=== PATIENT | male | born 1955 | race Caucasian/White ===

== ENCOUNTER → 2017-01-01 | Outpatient (CLI) | payer OTHER ==
--- NOTE | 2017-01-01 09:13 | KCIC ---
PROCEDURE Screening for metal within the orbits prior to a MRI study. A single Kevin view of the orbits was performed. HISTORY [employer] for 17 years. FINDINGS No metallic foreign body is seen within either orbit. The maxillary and ethmoid and frontal sinuses are clear. The orbital floors appear symmetric and are intact. IMPRESSION No metallic foreign body is identified within either orbit. The patient is cleared for MRI. Electronically signed by: Chase Beasley MD (Jan 01, 2017 09:11:47)
--- NOTE | 2017-01-01 10:43 | KCIC ---
PROCEDURE MRI study of the right elbow without contrast HISTORY Lifting injury in November 2016. Bruising and pain of the right elbow. TECHNIQUE Noncontrast MRI sequences of the right elbow were performed in all 3 planes. An additional FABS sequence was performed. COMPARISON None available. FINDINGS No significant joint effusion is seen. No loose osteochondral body is evident. No bone marrow edema or fracture or marrow infiltrative process is seen. No focal osteochondral abnormality of the radial capitellar joint or the ulnar trochlear joint is seen. The lateral collateral ligament and lateral ulnar collateral ligament and the ulnar collateral ligament and annular ligament are intact. There is mild tendinosis of the common extensor tendon mechanism at the attachment to the lateral epicondyle. There is minimal tendinosis of the common flexor tendon mechanism at the attachment to the medial epicondyle. Otherwise no high-grade partial tear or complete tear of these tendon mechanisms is seen. The triceps tendon is intact. There is mild tendinosis of the triceps tendon at the attachment to the olecranon. No olecranon bursitis is seen. The brachialis tendon is intact. There is increased signal within the distal biceps tendon with thickening of the tendon. This is consistent with tendinosis with a high-grade partial longitudinal tear of the tendon. No complete rupture of the tendon is seen which remains intact to the attachment onto the proximal radial tubercle. Moderate tenosynovitis is seen around the tendon. 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 No complete rupture of this tendon is seen which is intact to the insertion onto the proximal radial tubercle. Moderate tenosynovitis. Electronically signed by: Chase Beasley MD (Jan 01, 2017 10:42:03)
== END | disposition home or self-care (01) ==
LOC: KCIC MRI 08:47
PROVIDERS: ATTEND Orthopaedic Surgery
DX: M25.521 Pain in right elbow (principal); T15.90XA Foreign body on external eye, part unspecified, unspecified eye, initial encounter
CPT/HCPCS: 70030; 73221